=== PATIENT | female | born 1985 | race Caucasian/White ===

== ENCOUNTER 2017-03-01 21:59 | Emergency (ER) | payer SELFPAY ==
--- NOTE | 2017-03-01 22:34 | ED.PDOC ---
History of Present Illness - General Chief Complaint: ENT Problem Stated Complaint: sore throat / stiff neck Time Seen by Provider: 03/01/17 22:34 Source: patient Exam Limitations: no limitations - History of Present Illness Initial Comments: Claudia Acosta 31 y/o female stated she had hoarseness with cough and congestion the last 5 days not better and today left side of her neck with dull ache;no fever ,no dysphagia,no nausea/vomiting. Timing/Duration: other - 5 days ago see hpi Severity: moderate EENT Location: nose, other - larynx Prearrival Treatment: no prearrival treatment Presenting Symptoms: see hpi Improving Factors: nothing Worsening Factors: nothing Associated Symptoms: nasal congestion/drainage, other - see hpi Allergies/Adverse Reactions: Allergies Diphenhydramine [From Benadryl] Allergy (Verified 03/10/14 16:31) Home Medications: Ambulatory Orders Albuterol Inhaler [Ventolin Hfa Inhaler] 1 puff INH PRN PRN 10/10/14 Cephalexin Monohydrate [Keflex] 500 mg PO BID #14 cap 03/13/16 Losartan Potassium & Hydrochlo 03/13/16 Paxil 03/13/16 Sulfa/Trimeth 800/160 (Ds) Tab [Bactrim DS Tab] 1 ea PO BID #20 tab 03/13/16 Sulfa/Trimeth Tab 800/160 (ER) [Bactrim DS Tab (ER DISPENSE)] 1 ea PO ONCE #1 tab 03/13/16 Methocarbamol [Robaxin] 750 mg PO BID #10 tab 03/01/17 Review of Systems - Review of Systems Constitutional: States: no symptoms reported EENTM: States: see HPI Respiratory: States: no symptoms reported Cardiology: States: no symptoms reported Gastrointestinal/Abdominal: States: no symptoms reported Genitourinary: States: no symptoms reported Musculoskeletal: States: no symptoms reported Skin: States: no symptoms reported Neurological: States: no symptoms reported Past Medical History (General) - Patient Medical History Hx Stroke: No Hx Asthma: Yes Hx of COPD: Yes - mom Hx Congestive Heart Failure: No Hx Hypertension: Yes Hx Diabetes: No Hx Cancer: Yes - lungs-mom Hx Hepatitis C: No Hx MRSA: Yes MRSA Source:: Wound Surgical History: other - Vaccination History Hx Tetanus, Diphtheria Vaccination: Yes Hx Influenza Vaccination: No Hx Pneumococcal Vaccination: No Immunizations Up to Date: Yes - Social History Hx Tobacco Use: Yes Hx Alcohol Use: No Hx Physical Abuse: No Hx Emotional Abuse: No Hx Suspected Abuse: No - Female History Patient is a Female of Child Bearing Age (10 -59 yrs old): Yes Hx Last Menstrual Period: 03/01/17 Patient : No Family Medical History - Family History Mother Living Status: Still Living Hx Family Hypertension: Yes Physical Exam - Physical Exam General Appearance: Alert, Comfortable, No apparent distress Eye Exam: bilateral normal Ear Exam: bilateral ear: auricle normal, canal normal, TM normal Nasal Exam: other - nasal congestion Throat Exam: normal mouth inspection, pharynx normal, other - no meningeal signs Neck: supple, other - tenderness left side neck Cardiovascular/Respiratory: regular rate, rhythm, no M/R/G, normal peripheral pulses, normal breath sounds Neurologic: no motor/sensory deficits, alert Skin Exam: normal color, warm/dry Progress - Progress Progress: 03/01/17 22:44 Last Vital Signs Temp 97.8 F 03/01/17 22:32 Pulse 110 H 03/01/17 22:32 Resp 20 03/01/17 22:32 BP 142/95 03/01/17 22:32 Pulse Ox 94 L 03/01/17 22:32 Departure - Departure Clinical Impression: Laryngitis, Torticollis, acute Time of Disposition: 22:52 Disposition: Discharge to Home or Self Care Departure Forms: ED Discharge - Pt. Copy, Patient Portal Self Enrollment Instructions: DI for Laryngitis, Laryngitis, DI for Torticollis, Torticollis Referrals: Puja Pop NP [Primary Care Provider] - 1-2 Weeks Prescriptions: Methocarbamol [Robaxin] 750 mg PO BID #10 tab Home Medications: Ambulatory Orders Albuterol Inhaler [Ventolin Hfa Inhaler] 1 puff INH PRN PRN 10/10/14 Cephalexin Monohydrate [Keflex] 500 mg PO BID #14 cap 03/13/16 Losartan Potassium & Hydrochlo 03/13/16 Paxil 03/13/16 Sulfa/Trimeth 800/160 (Ds) Tab [Bactrim DS Tab] 1 ea PO BID #20 tab 03/13/16 Sulfa/Trimeth Tab 800/160 (ER) [Bactrim DS Tab (ER DISPENSE)] 1 ea PO ONCE #1 tab 03/13/16 Methocarbamol [Robaxin] 750 mg PO BID #10 tab 03/01/17 Additional Instructions: May take Aleve (OTC)-1-2 tablets am/pm for pain as needed and Afrin nose spray 2 sprays each nose am/pm 3 days on 3 days off as needed for nasal congestion
[2017-03-01] MEDS ORDERED: HYDROcodone 10MG/APAP 325MG 1 EA TAB PO ONE (22:45)
[2017-03-01] MEDS ORDERED: ORPHENADRINE CITRATE 30 MG/ML AMP IM ONE (22:45)
[2017-03-01] MEDS ORDERED: predniSONE 10 MG TAB PO ONE (22:45)
[2017-03-01] MEDS ORDERED: BENZONATATE PERLES 100 MG CAP PO ONE (22:46)
[2017-03-01 23:23] VITALS: BP 145/95; TEMP 98.4; O2SAT 93
== END 2017-03-01 23:22 | disposition home or self-care (01) ==
LOC: ER 21:59
DX: J04.0 Acute laryngitis (principal); M43.6 Torticollis
CPT/HCPCS: J2360; J7512

== ENCOUNTER 2017-03-04 22:51 | Emergency (ER) | payer SELFPAY ==
[2017-03-04] MEDS ORDERED: LEVALBUTEROL NEBS 1.25 MG/3 ML VIAL NEB ONE (23:32)
[2017-03-04 23:52] VITALS: TEMP 97.7
--- NOTE | 2017-03-05 00:09 | RAD ---
EXAM: Two view chest. INDICATION: Shortness of breath. COMPARISON: Chest x-ray: 03/13/2016. FINDINGS: Cardiac silhouette: At the upper limit of normal in size Dorothy: Unremarkable. Lobar consolidation: None. Pleural effusion: None. Pneumothorax: None. Other: None. Bones: Unremarkable. Other: None. IMPRESSION: 1. No acute cardiopulmonary process. Electronically signed by: Juarez Mejia MD 03/05/2017 12:08 AM [facility] Workstation: [id number]
[2017-03-05] MEDS ORDERED: IPRATROPIUM/ALBUTEROL 3 ML VIAL NEB ONE (00:23)
[2017-03-05 00:24] VITALS: BP 133/103
[2017-03-05] MEDS ORDERED: methylPREDNISolone SODIUM SUC 125 MG/2 ML VIAL IV ONE (00:24)
[2017-03-05] MEDS ORDERED: SODIUM CHLORIDE 0.9% 1000ML 1,000 ML IVS ONE (00:25)
--- NOTE | 2017-03-05 01:23 | ED.PDOC ---
History of Present Illness - General Chief Complaint: Respiratory Problem Stated Complaint: short of breath, coughing, sinus pressure Time Seen by Provider: 03/05/17 00:20 Source: patient Exam Limitations: no limitations - History of Present Illness Comments: Claudia Acosta 31 y/o female seen 03/01/17 for acute laryngitis at [facility] came back today with more coughing,nasal congestion and sob. Timing/Duration: other - 7 days Cough Quality/Degree: dry cough Possible Cause: no prior episodes Improving Factors: nothing Worsening Factors: nothing Associated Symptoms: other - hoarseness Respiratory Risk Factors: other - smoker Allergies/Adverse Reactions: Allergies Diphenhydramine [From Benadryl] Allergy (Verified 03/04/17 23:30) Fish Allergy Allergy (Verified 03/04/17 23:30) Home Medications: Ambulatory Orders Albuterol Inhaler [Ventolin Hfa Inhaler] 1 puff INH PRN PRN 10/10/14 Cephalexin Monohydrate [Keflex] 500 mg PO BID #14 cap 03/13/16 Losartan Potassium & Hydrochlo 03/13/16 Paxil 03/13/16 Sulfa/Trimeth 800/160 (Ds) Tab [Bactrim DS Tab] 1 ea PO BID #20 tab 03/13/16 Sulfa/Trimeth Tab 800/160 (ER) [Bactrim DS Tab (ER DISPENSE)] 1 ea PO ONCE #1 tab 03/13/16 Methocarbamol [Robaxin] 750 mg PO BID #10 tab 03/01/17 Albuterol Inhaler [Ventolin Hfa Inhaler] 108 mcg IN Q6HRS PRN #1 inh 03/05/17 Dexamethasone Tab [Decadron Tab] 4 mg PO DAILY #5 tab 03/05/17 Review of Systems - Review of Systems Constitutional: States: no symptoms reported EENTM: States: see HPI Respiratory: States: see HPI Cardiology: States: no symptoms reported Gastrointestinal/Abdominal: States: no symptoms reported Genitourinary: States: no symptoms reported Musculoskeletal: States: no symptoms reported Skin: States: no symptoms reported Past Medical History (General) - Patient Medical History Hx Seizures: No Hx Stroke: No Hx Dementia: No Hx Asthma: Yes Hx of COPD: No Hx Cardiac Disorders: No Hx Congestive Heart Failure: No Hx Pacemaker: No Hx Hypertension: Yes Hx Thyroid Disease: No Hx Diabetes: No Hx Gastroesophageal Reflux: No Hx Renal Disease: No Hx Cancer: No Hx of HIV: No Hx Hepatitis C: No Hx MRSA: Yes MRSA Source:: Wound Surgical History: other - Vaccination History Hx Tetanus, Diphtheria Vaccination: Yes Hx Influenza Vaccination: No Hx Pneumococcal Vaccination: No - Social History Hx Tobacco Use: Yes Hx Alcohol Use: No Hx Physical Abuse: No Hx Emotional Abuse: No Hx Suspected Abuse: No - Female History Patient is a Female of Child Bearing Age (10 -59 yrs old): Yes Hx Last Menstrual Period: 03/01/17 Patient : No Family Medical History - Family History Mother Living Status: Still Living Hx Family Hypertension: Yes Hx Family Cancer: Yes - lung-mom Physical Exam - Physical Exam General Appearance: Alert, Comfortable, No apparent distress Eye Exam: bilateral normal ENT Exam: normal ENT inspection, hearing grossly normal, pharynx normal, nasal congestion Neck: supple, normal inspection, trachea midline Respiratory: chest non-tender, no respiratory distress, other - speaks in full sentences,coarse breath sounds Cardiovascular/Chest: normal peripheral pulses, regular rate, rhythm, no murmur Neurologic: alert, oriented x 3 Skin Exam: normal color, warm/dry Lymphatic: no adenopathy Progress - Progress Progress: 03/05/17 01:30 Last Vital Signs Temp 97.7 F 03/04/17 23:15 Pulse 92 H 03/05/17 00:23 Resp 22 03/05/17 00:23 BP 133/103 03/05/17 00:23 Pulse Ox 91 L 03/05/17 00:23 03/05/17 00:22 SVN/Updraft Therapy .ONCE 03/05/17 00:24 SVN/Updraft Therapy .ONCE 03[facility]05/17 [facility] Results - last 24 hr 03/04/17 03/04/17 23:50 23:50 WBC 9.6 RBC 5.13 Hgb 16.6 H Hct 49.7 H MCV 97.0 MCH 32.3 H MCHC 33.4 RDW 14.2 Plt Count 233 MPV 8.7 Absolute Neuts (auto) 5.40 Absolute Lymphs (auto) 3.20 Absolute Monos (auto) 0.60 Absolute Eos (auto) 0.40 Absolute Basos (auto) 0.00 Neutrophils % 56.3 Lymphocytes % 33.3 Monocytes % 6.0 Eosinophils % 3.9 Basophils % 0.5 Sodium 137 Potassium 4.3 Chloride 109 Carbon Dioxide 17 L Anion Gap 15.3 BUN 14 Creatinine 0.75 BUN/Creatinine Ratio 18.7 Random Glucose 103 Serum Osmolality 274.5 L Calcium 8.5 Flu swab negatve a/b - Results/Orders Results/Orders: Laboratory Tests 03/04/17 03/04/17 23:50 23:50 WBC 9.6 RBC 5.13 Hgb 16.6 H Hct 49.7 H MCV 97.0 MCH 32.3 H MCHC 33.4 RDW 14.2 Plt Count 233 MPV 8.7 Absolute Neuts (auto) 5.40 Absolute Lymphs (auto) 3.20 Absolute Monos (auto) 0.60 Absolute Eos (auto) 0.40 Absolute Basos (auto) 0.00 Neutrophils % 56.3 Lymphocytes % 33.3 Monocytes % 6.0 Eosinophils % 3.9 Basophils % 0.5 Sodium 137 Potassium 4.3 Chloride 109 Carbon Dioxide 17 L Anion Gap 15.3 BUN 14 Creatinine 0.75 BUN/Creatinine Ratio 18.7 Random Glucose 103 Serum Osmolality 274.5 L Calcium 8.5 Patient wants to walk out and signed AMA stated does not want to be poke anymore - EKG/XRAY/CT XRAY: chest - no acute abnormalities noted Departure - Departure Clinical Impression: Reactive airway disease that is not asthma, Laryngitis acute, spasmodic, Hypoxia Time of Disposition: 01:39 Disposition: Left Against Medical Advice Condition: Fair Departure Forms: ED Discharge - Pt. Copy, Patient Portal Self Enrollment Instructions: Laryngitis, DI for Laryngitis, Reactive Airway Disease-Adult, DI for Reactive Airway Disease-Adult Referrals: Puja Pop NP [Primary Care Provider] - 1-2 Weeks Prescriptions: Albuterol Inhaler [Ventolin Hfa Inhaler] 108 mcg IN Q6HRS PRN #1 inh PRN Reason: Cough Dexamethasone Tab [Decadron Tab] 4 mg PO DAILY #5 tab Home Medications: Ambulatory Orders Albuterol Inhaler [Ventolin Hfa Inhaler] 1 puff INH PRN PRN 10/10/14 Cephalexin Monohydrate [Keflex] 500 mg PO BID #14 cap 03/13/16 Losartan Potassium & Hydrochlo 03/13/16 Paxil 03/13/16 Sulfa/Trimeth 800/160 (Ds) Tab [Bactrim DS Tab] 1 ea PO BID #20 tab 03/13/16 Sulfa/Trimeth Tab 800/160 (ER) [Bactrim DS Tab (ER DISPENSE)] 1 ea PO ONCE #1 tab 03/13/16 Methocarbamol [Robaxin] 750 mg PO BID #10 tab 03/01/17 Albuterol Inhaler [Ventolin Hfa Inhaler] 108 mcg IN Q6HRS PRN #1 inh 03/05/17 Dexamethasone Tab [Decadron Tab] 4 mg PO DAILY #5 tab 03/05/17 Additional Instructions: Follow up with primary Md you call for your appointment;continue with CHARLIE
[2017-03-05] MEDS ORDERED: DEXAMETHASONE INJ 3 MG, SODIUM CHLORIDE 0.9% NEB 3 ML NEB ONE ×2 (01:40)
[2017-03-05] MEDS ORDERED: SODIUM CHLORIDE 0.9% NEB 3 ML VIAL ONE (01:51)
[2017-03-05] MEDS ORDERED: DEXAMETHASONE INJ 4 MG/ML VIAL ONE (01:51)
[2017-03-05 03:35] VITALS: O2SAT 91
== END 2017-03-05 03:20 | disposition left against medical advice (07) ==
LOC: ER 22:51
DX: J04.0 Acute laryngitis (principal); R09.02 Hypoxemia; I10 Essential (primary) hypertension; Z87.891 Personal history of nicotine dependence; Z88.8 Allergy status to other drugs, medicaments and biological substances
CPT/HCPCS: 36415; 36600; 71020; 80048; 82803; 82805; 85025; 87502; 94640; A4216; J1100; J2930; J7030; J7614; J7620

== ENCOUNTER 2017-06-17 19:03 | Emergency (ER) | payer SELFPAY ==
[2017-06-17] MEDS ORDERED: diltiaZEM DRIP 125 MG/25 ML VIAL IVPB ONE (19:43)
--- NOTE | 2017-06-17 19:47 | RAD ---
Procedure: XR CHEST 1 VIEW Exam Date: 06/17/2017 7:12 PM CDT Ordering Provider: Johan Vergara Clinical Indication: sob Comparison: March 04, 2017 Findings: Moderate right-sided pleural effusion is present with associated consolidation. Left lung is clear. There is no pneumothorax. Heart size is enlarged. Impression: Moderate right-sided pleural effusion with associated consolidation. Cardiomegaly. Electronically signed by: Agnieszka Cuevas MD 06/17/2017 7:45 PM CDT
[2017-06-17] MEDS ORDERED: ADENOSINE INJ 6 MG/2 ML SYG IV ONE ×2 (19:53)
[2017-06-17] MEDS ORDERED: SODIUM CHLORIDE 0.9% 1000ML 1,000 ML IVS ONE (20:00)
--- NOTE | 2017-06-17 20:23 | CT ---
Procedure: CT CHEST WITHOUT IV CONTRAST Exam Date: 06/17/2017 7:49 PM CDT Ordering Provider: Johan Vergara Clinical Indication: right lung pathology Comparison: June 17, 2017 Technique: Helically acquired axial images were obtained through the chest. Coronal and Sagittal reformats were obtained. This exam was performed according to our departmental dose-optimization program which includes automated exposure control, adjustment of the mA and/or kV according to patient size and/or use of iterative reconstruction technique. Findings: A small to moderate right-sided pleural effusion is present which may be partially loculated. There is associated somewhat masslike appearing consolidation which measures approximately 3.9 x 2.0 cm. Few superimposed air bronchograms are present. Multifocal patchy groundglass opacities are seen in the right upper lobe. No significant left-sided pleural effusion. There is evidence of significant cardiomegaly. No pathologic adenopathy in the thorax by size criteria. The partially imaged upper abdomen demonstrates no acute abnormality. The visualized osseous structures are intact. The soft tissues are unremarkable. Impression: Small to moderate loculated right-sided pleural effusion with associated masslike consolidation which may represent rounded atelectasis, pneumonia, or less likely neoplasm. Recommend follow-up with CT chest in three months to document resolution. Multifocal patchy groundglass opacities in the right upper lobe are suspicious for pneumonia, possibly from atypical infectious process. Electronically signed by: Agnieszka Cuevas MD 06/17/2017 8:21 PM CDT
[2017-06-17] MEDS ORDERED: PIPERACILLIN/TAZOBACTAM 3.375 GM in SODIUM CHLORIDE 0.9% 100ML 100 ML IVPB ONE (20:24)
[2017-06-17] MEDS ORDERED: SODIUM CHLORIDE 0.9% 100ML 100 ML IVPB ONE (20:30)
[2017-06-17] MEDS ORDERED: MORPHINE SULFATE INJ 10 MG/ML VIAL IV ONE (20:30)
[2017-06-17] MEDS ORDERED: PIPERACILLIN/TAZOBACTAM 3.375 GM VIAL IVPB ONE (20:30)
--- NOTE | 2017-06-17 21:01 | ED.PDOC ---
History of Present Illness - General Chief Complaint: Cardiovascular Problem Stated Complaint: right rib pain and shortness of breath Time Seen by Provider: 06/17/17 19:08 Source: patient Exam Limitations: no limitations - History of Present Illness Initial Comments: The patient is a 31-year-old female presenting to the emergency room after approximately 16 hours to 18 hours of right-sided chest pain and shortness of breath. The patient does have a history of reactive airway disease with seasonal allergies. She has been seen on several occasions here in the emergency room for that problem and has left AGAINST MEDICAL ADVICE on several occasions. The patient does have a history of IV drug use. She is very difficult to get blood from. She has refused blood draws on multiple occasions in the past. Upon arrival here the patient is in obvious distress and still refusing blood draws and IVs. The patient is significantly tachypneic , hypotensive and borderline hypoxic. She does have some acrocyanosis. Heart rate is 210 bpm and regular. Patient has no history of anyarrhythmias in the past. She adamantly denies taking any illicit substance in the last few weeks. She reports chest pain on the right side of her chest but no central chest pain. No history of anything like angina. She has never had any DVTs. She denies having had any fevers. She reports that she does have a dry mouth. After very extensive convincing by us and her significant other, the patient finally agrees to an IV. He does take several attempts secondary to her history of IV drug use. She has adamantly refused an EJ by me as well as a central line by me. She is also adamantly refuses electrocardioversion even with sedation. She has also refused adamantly an ABG. the patient initially refused any pain or anxiety medications. Finally she did agree to accept a small dose of pain medications. The patient's oxygen saturations do very from around 81% to 96% depending on position and how she is breathing. Again she refuses an ABG. We did finally obtain a peripheral IV to give medications but were unable to get any blood from it. The patient has refused further IV sticks for additional treatment and diagnostic purposes. Timing/Duration: 24 hours Severity: severe Improving Factors: nothing Worsening Factors: movement Associated Symptoms: chest pain, shortness of breath Allergies/Adverse Reactions: Allergies Diphenhydramine [From Benadryl] Allergy (Verified 12/18/17 23:30) Fish Allergy Allergy (Verified 03/04/17 23:30) Home Medications: Ambulatory Orders Albuterol Inhaler [Ventolin Hfa Inhaler] 1 puff INH PRN PRN 10/10/14 Cephalexin Monohydrate [Keflex] 500 mg PO BID #14 cap 03/13/16 Losartan Potassium & Hydrochlo 03/13/16 Paxil 03/13/16 Sulfa/Trimeth 800/160 (Ds) Tab [Bactrim DS Tab] 1 ea PO BID #20 tab 03/13/16 Sulfa/Trimeth Tab 800/160 (ER) [Bactrim DS Tab (ER DISPENSE)] 1 ea PO ONCE #1 tab 03/13/16 Methocarbamol [Robaxin] 750 mg PO BID #10 tab 03/01/17 Albuterol Inhaler [Ventolin Hfa Inhaler] 108 mcg IN Q6HRS PRN #1 inh 03/05/17 Dexamethasone Tab [Decadron Tab] 4 mg PO DAILY #5 tab 03/05/17 Review of Systems - Review of Systems Constitutional: States: malaise EENTM: States: no symptoms reported Respiratory: States: short of breath Cardiology: States: chest pain Gastrointestinal/Abdominal: States: no symptoms reported Genitourinary: States: no symptoms reported Musculoskeletal: States: no symptoms reported Skin: States: no symptoms reported Neurological: States: anxiety Endocrine: States: no symptoms reported All other Systems: No Change from Baseline Past Medical History (General) - Patient Medical History Hx Seizures: No Hx Stroke: No Hx Dementia: No Hx Asthma: Yes Hx of COPD: No Hx Cardiac Disorders: No Hx Congestive Heart Failure: No Hx Pacemaker: No Hx Hypertension: Yes Hx Thyroid Disease: No Hx Diabetes: No Hx Gastroesophageal Reflux: No Hx Renal Disease: No Hx Cancer: No Hx of HIV: No Hx Hepatitis C: No Hx MRSA: Yes MRSA Source:: Wound - Vaccination History Hx Tetanus, Diphtheria Vaccination: Yes Hx Influenza Vaccination: No Hx Pneumococcal Vaccination: No - Social History Hx Tobacco Use: Yes Hx Alcohol Use: No Hx Physical Abuse: No Hx Emotional Abuse: No Hx Suspected Abuse: No - Female History Hx Last Menstrual Period: 03/01/17 Patient : No - Triage Comment ED Triage Comment: rapid heartrate, painful respirations, pain to right side Family Medical History - Family History Mother Living Status: Still Living Hx Family Hypertension: Yes Hx Family Cancer: Yes - lung-mom Physical Exam - Physical Exam General Appearance: Alert, Anxious, Obvious distress Eye Exam: bilateral normal Ears, Nose, Throat: hearing grossly normal, normal ENT inspection, normal pharynx Neck: non-tender, supple Respiratory: respiratory distress, decreased breath sounds, accessory muscle use , rales, rhonchi, wheezing, other - initially the patient does have coarse rales throughout indicating probable earlypulmonary edema She does have some decreased breath sounds right lung base. She does have mild scattered wheezes initially. The coarse rales that are scattered in the wheezes do improve after cardioversion. Cardiovascular/Chest: normal peripheral pulses, no edema, tachycardia - telemetry and EKG indicated a supraventricular tachycardia at a rate of 210 bpmand regular Peripheral Pulses: radial,right: 2+, radial,left: 2+, dorsalis pedis,right: 2+, dorsalis pedis,left: 2+ Gastrointestinal/Abdominal: non tender, soft Rectal Exam: deferred Back Exam: normal inspection, no CVA tenderness, no vertebral tenderness Extremity: non-tender, normal inspection, no pedal edema, normal capillary refill Neurologic: ceiling cleaner II-XII nml as tested, alert, oriented x 3, other - the patient is alert and oriented and does know what is going on. She is very anxious and at times very verbally abusive to staff and unreasonable Skin Exam: other - the patient does have cyanosis initially upon arrival which does improve after oxygen was applied. Comments: Vital Signs - 8 hr 06/17/17 06/17/17 06/17/17 19:15 19:30 19:35 Temperature 99.7 F H Pulse Rate [ 202 H 211 H 109 H Apical] Respiratory 42 H 42 H 24 Rate Blood Pressure 85/48 105/60 [Left Arm] O2 Sat by Pulse 90 L 88 L Oximetry 06/17/17 06/17/17 19:45 19:49 Temperature Pulse Rate [ 206 H 114 H Apical] Respiratory 22 Rate Blood Pressure 103/56 [Left Arm] O2 Sat by Pulse 89 L 80 L Oximetry Progress - Progress Progress: 06/17/17 21:08 the patient is a 31-year-old female presenting to the emergency room in respiratory distress and in a supraventricular tachycardia in a decompensated state. Care of the patient has been hindered primarily by the patient herself. Blood work results have been severely limited by the patient' s willingness to have blood draws performed. She has refused further IV sites for therapeutic purposes including by myself. She refused electrical cardioversion. Fortunately chemical cardioversion with diltiazem 10mg did work. 12 mg of adenosine did nothing. It did not help that the IV was a smaller IV and further away from the heart than was ideal. currently the patient appears to be in a sinus tachycardia however on occasion it does look like some background atrial flutter is present. She is currently rate controlled and her lungs are clearing up somewhat from the diffuse wheezes and rales, with of course persistent abnormalities in the right lower lung field. the patient does not breathe well through her nose so oxygen for the most part is given by her mouth. She is requiring a "one of 3-4 L to keep her oxygen saturations above 90%. The patient is going to be transferred for further workup of her lung abnormalities and possible cardiac evaluation. We do have a blood culture drawn here but no further labs. She will also obviously need significant further lab work done in the near future. She does have significant T-wave inversion scattered on her EKG after cardioversion. This may require further workup. Transferring prior level of care. the patient has received a dose of Zosyn here. Critical care time spent on this patient in direct care for her respiratory distress and unstable arrhythmia 50 minutes. - Results/Orders Results/Orders: 06/17/17 19:12 Telemetry .CONTINUOUS B-TYPE NATRIURETIC PEPTIDE/BNP Stat CARDIAC ENZYME GROUP Stat COMPLETE METABOLIC PROFILE Stat MAGNESIUM Stat THYROID STIMULATING HORMONE Stat D-DIMER,QUANTITATIVE Stat PARTIAL THROMBOPLASTIN TIME Stat PROTHROMBIN TIME Stat CBC (AUTOMATED) W/AUTO DIFF Stat BLOOD CULTURE Stat HCG,SERUM Stat UA [URINALYSIS] Stat Initial EKG shows ventricular tachycardia diffuse T-wave changes. rate is 210 bpm. repeat EKG after 10 mg of diltiazem shows sinus tachycardia at a rate of about 110 bpm. She does have right bundle branch block. There are no real ST segment changes however she does have diffuse T-wave in versions in all leads except 1 and aVL. Telemetry monitoring after slowing rate doesn't time look like atrial flutter with slowed conduction. hest x-ray shows a right-sided effusion and probable consolidation. There is borderline cardiomegaly. CT scan of the chest shows small to moderate right-sided loculated pleural effusion with a masslike consolidation that could possibly be rounded atelectasis, a pneumonia, or a neoplasm. She also has a right upper lobe ground glass that could be an atypical pneumonia. Departure - Departure Clinical Impression: Respiratory distress, Supraventricular tachycardia, Loculated pleural effusion , Lung mass Hypotension Qualifiers: Hypotension type: other hypotension type Qualified Code(s): I95.89 - Other hypotension Disposition: Transfer to Hospital Referrals: Puja Pop NP [Primary Care Provider] - 1-2 Weeks Home Medications: Ambulatory Orders Albuterol Inhaler [Ventolin Hfa Inhaler] 1 puff INH PRN PRN 10/10/14 Cephalexin Monohydrate [Keflex] 500 mg PO BID #14 cap 03/13/16 Losartan Potassium & Hydrochlo 03/13/16 Paxil 03/13/16 Sulfa/Trimeth 800/160 (Ds) Tab [Bactrim DS Tab] 1 ea PO BID #20 tab 03/13/16 Sulfa/Trimeth Tab 800/160 (ER) [Bactrim DS Tab (ER DISPENSE)] 1 ea PO ONCE #1 tab 03/13/16 Methocarbamol [Robaxin] 750 mg PO BID #10 tab 03/01/17 Albuterol Inhaler [Ventolin Hfa Inhaler] 108 mcg IN Q6HRS PRN #1 inh 03/05/17 Dexamethasone Tab [Decadron Tab] 4 mg PO DAILY #5 tab 03/05/17 Transfer to Outside Facility - Transfer Information Accepting Provider:: dr becerra Accepting Facility: [facility] [[email or web address]] Reason for Transfer: ICU
[2017-06-17 21:14] VITALS: TEMP 98.9
[2017-06-17 21:28] VITALS: BP 107/37; O2SAT 89
== END 2017-06-17 21:40 | disposition short-term general hospital (02) ==
LOC: ER 19:03
DX: R06.03 Acute respiratory distress (principal); I47.1 Supraventricular tachycardia; J90 Pleural effusion, not elsewhere classified; R91.8 Other nonspecific abnormal finding of lung field; I95.9 Hypotension, unspecified; I45.10 Unspecified right bundle-branch block; I10 Essential (primary) hypertension; J45.909 Unspecified asthma, uncomplicated; Z87.891 Personal history of nicotine dependence
CPT/HCPCS: 36415; 71045; 71250; 85025; 87040; 93005; J0153; J2270; J2543; J7030; J7050

== ENCOUNTER 2020-03-01 15:20 | Emergency (ER) | payer SELFPAY ==
[2020-03-01] MEDS ORDERED: POTASSIUM CHLORIDE ELIXIR 20 MEQ/15 ML UD PO ONE ×3 (16:17→20:37)
--- NOTE | 2020-03-01 16:31 | ED.PDOC ---
History of Present Illness - General Chief Complaint: General Stated Complaint: medical clearance Time Seen by Provider: 03/01/20 15:22 Source: patient Exam Limitations: no limitations - History of Present Illness Initial Comments: The patient is a 34-year-old female presenting to emergency room under police custody's for clearance essentially to be taken to half-way. Patient does have numerous longstanding chronic medical problems including apparently advanced CHF and asthma for which she reports she has been on hospice for quite some time. She reports that she does normally wear oxygen at about 4 L. She also reports that she takes asthma medications fairly frequently. She does not appear to be fluid overloaded. She reports it has been quite sometime since she has had blood work. Apparently she has been getting all of her cardiac meds asthma medications through hospice. They have also been taking care of her pain and anxiety medications. Patient appears to be relaxing comfortably on nasal cannula here in the emergency room. She did not appear to be in any current distress. She does apparently have numerous longstanding symptoms however there are no obvious new symptoms. Timing/Duration: unsure Severity: mild Improving Factors: nothing Worsening Factors: nothing Allergies/Adverse Reactions: Allergies Diphenhydramine [From Benadryl] Allergy (Verified 03/04/17 23:30) Fish Allergy Allergy (Verified 03/04/17 23:30) Iodine Allergy (Verified 03/01/20 15:40) Home Medications: Ambulatory Orders Alprazolam [Xanax] 2 mg PO TID 03/01/20 Carvedilol 25 mg PO BID 03/01/20 Furosemide [Lasix] 160 mg PO BID 03/01/20 HYDROcodone 10MG/APAP 325MG [[place] 10/325] 1 tab PO PRN 03/01/20 Hydrochlorothiazide 25 mg PO DAILY 03/01/20 Isosorbide Mononitrate [Imdur] 60 mg PO BID 03/01/20 LORazepam [Ativan] 1 mg PO PRN 03/01/20 Morphine Sulfate 0.5 ml PO PRN 03/01/20 Potassium Chloride [Potassium Chloride ER] 20 meq PO DAILY #30 tab 03/01/20 Spironolactone 50 mg PO DAILY 03/01/20 Review of Systems - Review of Systems Review of Systems: 03/01/20 16:31 Positive symptoms are chronic in duration. Constitutional: States: malaise, weakness - Generalized EENTM: States: no symptoms reported Respiratory: States: cough - Mild chronic, short of breath - With exertion Cardiology: States: palpitations - Occasional Gastrointestinal/Abdominal: States: no symptoms reported Genitourinary: States: no symptoms reported Musculoskeletal: States: other - Chronic pain only Skin: States: no symptoms reported Neurological: States: anxiety Endocrine: States: no symptoms reported All other Systems: No Change from Baseline Past Medical History (General) - Patient Medical History Hx Seizures: No Hx Stroke: No Hx Dementia: No Hx Asthma: Yes Hx of COPD: Yes Hx Cardiac Disorders: Yes Hx Congestive Heart Failure: Yes Hx Pacemaker: No Hx Hypertension: Yes Hx Thyroid Disease: No Hx Diabetes: No Hx Gastroesophageal Reflux: No Hx Renal Disease: No Hx Cancer: No Hx of HIV: No Hx Hepatitis C: No Hx MRSA: Yes MRSA Source:: Wound - Vaccination History Hx Tetanus, Diphtheria Vaccination: Yes Hx Influenza Vaccination: Yes Hx Pneumococcal Vaccination: No - Social History Hx Tobacco Use: Yes Hx Alcohol Use: No Hx Physical Abuse: No Hx Emotional Abuse: No Hx Suspected Abuse: No - Female History Hx Last Menstrual Period: 03/01/17 Patient : No Family Medical History - Family History Mother Living Status: Still Living Hx Family Hypertension: Yes Hx Family Cancer: Yes - lung-mom Physical Exam - Physical Exam General Appearance: Alert, No apparent distress Eye Exam: bilateral normal Ears, Nose, Throat: hearing grossly normal, normal ENT inspection, normal pharynx Neck: full range of motion, supple Respiratory: lungs clear, normal breath sounds, no respiratory distress, no accessory muscle use Cardiovascular/Chest: normal peripheral pulses, regular rate, rhythm, no edema Peripheral Pulses: radial,right: 2+, radial,left: 2+ Gastrointestinal/Abdominal: non tender - Obese, soft Rectal Exam: deferred Back Exam: no vertebral tenderness Extremity: no pedal edema, no calf tenderness, normal capillary refill Neurologic: admissions dean II-XII nml as tested, alert, normal mood/affect, oriented x 3 Skin Exam: normal color Comments: Vital Signs - 24 hr 03/01/20 03/01/20 03/01/20 15:26 16:29 16:31 Temperature 97.8 F Pulse Rate [ 85 88 Left Brachial] Respiratory 20 16 20 Rate Blood Pressure 112/62 118/91 [Left Arm] O2 Sat by Pulse 97 98 Oximetry Vital Signs - 24 hr 03/01/20 03/01/20 03/01/20 15:26 16:29 16:31 Temperature 97.8 F Pulse Rate [ 85 88 Left Brachial] Respiratory 20 16 20 Rate Blood Pressure 112/62 118/91 [Left Arm] O2 Sat by Pulse 97 98 Oximetry 03/01/20 03/01/20 03/01/20 17:00 19:00 20:20 Temperature 97.7 F Pulse Rate [ 79 81 86 Left Brachial] Respiratory 18 18 18 Rate Blood Pressure 122/82 117/74 100/79 [Left Arm] O2 Sat by Pulse 97 98 100 Oximetry Progress - Progress Progress: 03/01/20 20:51 The patient is a 34-year-old female presented emergency room for medical clearance before she is taken to half-way for the night and then some form of a rehab facility tomorrow or the next day. The only acute pathology that was found was significant hypokalemia. This is likely due to the diuretics that are required for the patient. She did receive 100 mEq of oral potassium elixir raising the potassium level from 2.4-3.4. She will need to have another potassium level rechecked in a couple of weeks. She is going to be written for 20 mEq of potassium to take daily. The patient does have numerous long-term medical problems that appear to be at their baseline. She does have advanced CHF and does need to remain on her cardiac medications, diuretics and oxygen. She did receive her evening doses of her cardiac medications and diuretics here tonight. She will be discharged to police custody. [email or web address] [id number] - Results/Orders Results/Orders: Chest x-ray shows cardiomegaly and pulmonary hypertension. No significant infiltrates or effusion. Initial EKG shows normal sinus rhythm at 82 bpm. Left axis deviation. Right bundle branch block. Probable left anterior fascicular block. Inverted T waves in diffuse leads. Possibly due to bundle branch blocks. Left atrial dilation. No ST segment elevation. Repeat EKG shows normal sinus rhythm at 89 bpm. There is persistent right bundle branch block and likely left anterior fascicular block getting left axis deviation. She continues to have scattered T wave inversions that did not correct after correction of the hypokalemia. This is most likely due to chronic structural changes related to her congestive heart failure that she was on hospice for. No other acute changes are noted in comparison. QRS duration was decreased after correction of potassium. Laboratory Tests 03/01/20 03/01/20 03/01/20 15:50 15:50 15:50 WBC 16.5 H RBC 4.98 Hgb 16.5 H Hct 46.7 MCV 93.8 MCH 33.1 H MCHC 35.4 RDW 13.5 Plt Count 297 MPV 8.9 Absolute Neuts (auto) 14.90 H Absolute Lymphs (auto) 0.90 L Absolute Monos (auto) 0.60 Absolute Eos (auto) 0.00 Absolute Basos (auto) 0.20 H Neutrophils % 89.9 H Lymphocytes % 5.5 L Monocytes % 3.4 Eosinophils % 0.0 L Basophils % 1.2 PT 10.2 INR 1.03 PTT (SP) 23.4 Sodium 133 L Potassium 2.4 L* Chloride 91 L Carbon Dioxide 26 Anion Gap 18.4 H BUN 17 Creatinine 1.33 H BUN/Creatinine Ratio 12.8 Random Glucose 166 H Serum Osmolality 271.7 L Calcium 9.6 Magnesium 1.9 Total Bilirubin 0.6 AST 24 ALT 20 Alkaline Phosphatase 54 B-Natriuretic Peptide 171.0 H Serum Total Protein 7.4 Albumin 4.0 Globulin 3.4 Albumin/Globulin Ratio 1.2 Serum HCG, Qual Urine Color Urine Appearance Urine pH Ur Specific [place] Urine Protein Urine Glucose (UA) Urine Ketones Urine Blood Urine Nitrite Urine Bilirubin Urine Urobilinogen Ur Leukocyte Esterase Urine RBC Urine WBC Ur Epithelial Cells Amorphous Sediment Urine Bacteria Urine Opiates Screen Urine Barbiturates Ur Phencyclidine Scrn U Amphetamin/Meth Scrn U Benzodiazepines Scrn U Cocaine Metab Screen U Cannabinoids Screen 03/01/20 03/01/20 03/01/20 15:50 16:09 16:10 WBC RBC Hgb Hct MCV MCH MCHC RDW Plt Count MPV Absolute Neuts (auto) Absolute Lymphs (auto) Absolute Monos (auto) Absolute Eos (auto) Absolute Basos (auto) Neutrophils % Lymphocytes % Monocytes % Eosinophils % Basophils % PT INR PTT (SP) Sodium Potassium Chloride Carbon Dioxide Anion Gap BUN Creatinine BUN/Creatinine Ratio Random Glucose Serum Osmolality Calcium Magnesium Total Bilirubin AST ALT Alkaline Phosphatase B-Natriuretic Peptide Serum Total Protein Albumin Globulin Albumin/Globulin Ratio Serum HCG, Qual Negative Urine Color Yellow Urine Appearance Sl cloudy Urine pH 6.0 Ur Specific [place] 1.020 Urine Protein Negative Urine Glucose (UA) >=1000 H Urine Ketones Negative Urine Blood Negative Urine Nitrite Negative Urine Bilirubin Negative Urine Urobilinogen 0.2 Ur Leukocyte Esterase Negative Urine RBC 0 Urine WBC 0-1 Ur Epithelial Cells 20-30 Amorphous Sediment 2+ Urine Bacteria 2+ H Urine Opiates Screen Negative Urine Barbiturates Negative Ur Phencyclidine Scrn Negative U Amphetamin/Meth Scrn Positive H U Benzodiazepines Scrn Negative U Cocaine Metab Screen Negative U Cannabinoids Screen Negative 03/01/20 20:25 WBC RBC Hgb Hct MCV MCH MCHC RDW Plt Count MPV Absolute Neuts (auto) Absolute Lymphs (auto) Absolute Monos (auto) Absolute Eos (auto) Absolute Basos (auto) Neutrophils % Lymphocytes % Monocytes % Eosinophils % Basophils % PT INR PTT (SP) Sodium Potassium 3.4 L D Chloride Carbon Dioxide Anion Gap BUN Creatinine BUN/Creatinine Ratio Random Glucose Serum Osmolality Calcium Magnesium Total Bilirubin AST ALT Alkaline Phosphatase B-Natriuretic Peptide Serum Total Protein Albumin Globulin Albumin/Globulin Ratio Serum HCG, Qual Urine Color Urine Appearance Urine pH Ur Specific [place] Urine Protein Urine Glucose (UA) Urine Ketones Urine Blood Urine Nitrite Urine Bilirubin Urine Urobilinogen Ur Leukocyte Esterase Urine RBC Urine WBC Ur Epithelial Cells Amorphous Sediment Urine Bacteria Urine Opiates Screen Urine Barbiturates Ur Phencyclidine Scrn U Amphetamin/Meth Scrn U Benzodiazepines Scrn U Cocaine Metab Screen U Cannabinoids Screen Departure - Departure Clinical Impression: Hypokalemia due to excessive renal loss of potassium Disposition: Nursing Home Condition: Fair Departure Forms: ED Discharge - Pt. Copy, Patient Portal Self Enrollment Instructions: Hypokalemia Diet: regular diet Activity: increase activity as tolerated Prescriptions: Potassium Chloride [Potassium Chloride ER] 20 meq PO DAILY #30 tab Home Medications: Ambulatory Orders Alprazolam [Xanax] 2 mg PO TID 03/01/20 Carvedilol 25 mg PO BID 03/01/20 Furosemide [Lasix] 160 mg PO BID 03/01/20 HYDROcodone 10MG/APAP 325MG [[place] 10/325] 1 tab PO PRN 03/01/20 Hydrochlorothiazide 25 mg PO DAILY 03/01/20 Isosorbide Mononitrate [Imdur] 60 mg PO BID 03/01/20 LORazepam [Ativan] 1 mg PO PRN 03/01/20 Morphine Sulfate 0.5 ml PO PRN 03/01/20 Potassium Chloride [Potassium Chloride ER] 20 meq PO DAILY #30 tab 03/01/20 Spironolactone 50 mg PO DAILY 03/01/20 Additional Instructions: The patient is a 34-year-old female presented emergency room for medical clearance before she is taken to half-way for the night and then some form of a rehab facility tomorrow or the next day. The only acute pathology that was found was significant hypokalemia. This is likely due to the diuretics that are required for the patient. She did receive 100 mEq of oral potassium elixir raising the potassium level from 2.4-3.4. She will need to have another potassium level rechecked in a couple of weeks. She is going to be written for 20 mEq of potassium to take daily. The patient does have numerous long-term medical problems that appear to be at their baseline. She does have advanced CHF and does need to remain on her cardiac medications, diuretics and oxygen. She did receive her evening doses of her cardiac medications and diuretics here tonight. She will be discharged to police custody.
--- NOTE | 2020-03-01 16:40 | RAD ---
EXAM DESCRIPTION: Chest,1 View CLINICAL HISTORY: chronic chf, asthma COMPARISON: 17 June 2017 TECHNIQUE: AP portable chest FINDINGS: Cardiomegaly is evident. Dilated central pulmonary arteries are noted. The lungs are free of acute infiltrate. No pleural fluid is seen. IMPRESSION: Cardiomegaly is evident with findings suggestive of pulmonary artery hypertension. Electronically signed by: David Isidro MD 03/01/2020 4:38 PM [employer]
[2020-03-01] MEDS ORDERED: FUROSEMIDE 40 MG TAB PO ONE (20:24)
[2020-03-01] MEDS ORDERED: ISOSORBIDE MONONITRATE (IMDUR) 30 MG TAB PO ONE (20:24)
[2020-03-01] MEDS ORDERED: LORazepam 0.5 MG TAB PO ONE (20:24)
[2020-03-01] MEDS ORDERED: CARVEDILOL 12.5 MG TAB PO ONE (20:24)
[2020-03-01] MEDS ORDERED: FUROSEMIDE 40 MG TAB ONE (20:28)
[2020-03-01] MEDS ORDERED: LORazepam 0.5 MG TAB ONE (20:29)
[2020-03-01 20:31] VITALS: O2SAT 100
[2020-03-01 21:30] VITALS: BP 119/69; TEMP 97.2
== END 2020-03-01 21:15 ==
LOC: ER 15:20
DX: E87.6 Hypokalemia (principal); I50.9 Heart failure, unspecified; I45.10 Unspecified right bundle-branch block; R53.1 Weakness; R53.81 Other malaise; G89.29 Other chronic pain; J44.9 Chronic obstructive pulmonary disease, unspecified; I11.0 Hypertensive heart disease with heart failure; Z99.81 Dependence on supplemental oxygen; Z87.891 Personal history of nicotine dependence; Z79.899 Other long term (current) drug therapy